=== PATIENT | male | born 1955 | race Hispanic/Latino ===

== ENCOUNTER 2020-06-23 15:20 | Inpatient (IN) | payer OTHER, MEDICARE ==
[2020-06-21 13:40] VITALS: BP 147/74
[2020-06-21 14:07] LABS: BASOPHILS % (AUTO) 0.4 % (0.0-5.0); EOSINOPHILS % (AUTO) 1.7 % (0.0-8.0); HEMATOCRIT 51.7 % (42-54); LYMPHOCYTES % (AUTO) 35.9 % (21.0-51.0); MEAN CORPUSCULAR HEMOGLOBIN 31.5 pg (27.0-33.0); MEAN CORPUSCULAR HGB CONC 33.7 g/dL (32.0-36.0); MEAN CORPUSCULAR VOLUME 93.7 fL (79-99); MONOCYTES % (AUTO) 6.6 % (3.0-13.0); NEUTROPHILS % (AUTO) 55.2 % (40.0-77.0); PLATELET COUNT (AUTO) 145 K/uL (130-400); RED BLOOD CELL COUNT(AUTO) 5.52 MIL/uL (4.50-6.20); WHITE BLOOD COUNT (AUTO) 9.5 K/uL (4.8-10.8)
[2020-06-21 14:18] LABS: ALBUMIN 4.3 g/dL (3.5-5.0); BILIRUBIN,TOTAL 0.5 mg/dL (0.2-1.0); CREATININE 0.8 mg/dL (0.5-1.5); POTASSIUM 4.1 mmol/L (3.5-5.1)
[2020-06-21 14:24] LABS: HEMOGLOBIN A1C 5.5 % (4.0-6.0)
[2020-06-21 14:44] LABS: INR 1.12 (0.85-1.15); PARTIAL THROMBOPLASTIN TIME 22.3 SEC (26.3-35.5); PROTHROMBIN TIME 11.5 SEC (9.6-11.6)
[~2020-06-23] VITALS: Ht 162.6 cm; Wt 89.9 kg
[~2020-06-23 15:20] MED LIST: AEC81 PO
[2020-06-23] MEDS ORDERED: METO-391 PO (15:24)
[2020-06-23] MEDS ORDERED: GABA300C PO (15:24)
[2020-06-23] MEDS ORDERED: LISI2.5T13 PO (15:24)
[2020-06-23] MEDS ORDERED: ATOR40TA69 PO (15:24)
[2020-06-23] MEDS ORDERED: CLOP75TA32 PO (15:24)
[2020-06-23] MEDS ORDERED: MULT-1258 PO (15:24)
[2020-06-24] VITALS (13 sets, daily range): BP systolic 84–148; BP diastolic 47–79
[2020-06-24] MEDS ORDERED: CEFAZOLIN SODIUM 1 GM VIAL IVP ONE (08:00)
[2020-06-24] MEDS ORDERED: CEFAZOLIN SODIUM 1 GM VIAL ONE ×3 (11:04→18:09)
[2020-06-24] MEDS ORDERED: 0.9%NACL 1000ML 1,000 ML IV ONE (11:07)
[2020-06-24] MEDS ORDERED: LIDOCAINE HCL MPF 1% 5ML VIAL ONE (12:24)
[2020-06-24] MEDS ORDERED: MIDAZOLAM HCL 1 MG/ML 2ML VIAL ONE ×2 (12:25→17:21)
[2020-06-24] MEDS ORDERED: PROPOFOL 10 MG/ML 20ML VIAL IV ONE (17:20)
[2020-06-24] MEDS ORDERED: DEXAMETHASONE SOD PHOSPHATE 10MG/ML 1ML VIAL ONE (17:20)
[2020-06-24] MEDS ORDERED: SUCCINYLCHOLINE CHLORIDE 20 MG/ML 10 ML VIAL ONE (17:20)
[2020-06-24] MEDS ORDERED: LIDOCAINE PF 100MG/5ML (2%) SYRINGE 5ML ONE (17:20)
[2020-06-24] MEDS ORDERED: FENTANYL CITRATE PF 50 MCG/1 ML 2ML VIAL ONE (17:20)
[2020-06-24] MEDS ORDERED: ONDANSETRON 4MG INJ ONE (17:20)
[2020-06-24] MEDS ORDERED: GLYCOPYRROLATE 1 MG/5 ML SYRINGE ONE (17:20)
[2020-06-24] MEDS ORDERED: NEOSTIGMINE 5MG/5ML SYR IV ONE (17:21)
[2020-06-24] MEDS ORDERED: ROCURONIUM 10MG/1ML SYR 10 MG/ML ML ONE (17:21)
[2020-06-24] MEDS ORDERED: EPHEDRINE SULFATE 50 MG/ML AMPULE ONE (17:46)
[2020-06-24] MEDS ORDERED: ACETAMINOPHEN 325 MG TAB PO PRN ×2 (19:15)
[2020-06-24] MEDS ORDERED: TRAMADOL HCL 50 MG TABLET PO PRN (19:15)
[2020-06-24] MEDS ORDERED: ONDANSETRON 4MG INJ IVP PRN (19:15)
[2020-06-24] MEDS: GABAPENTIN 300 MG CAPSULE PO SCH (20:41)
[2020-06-24] MEDS: TRAMADOL HCL 50 MG TABLET PO PRN (21:43)
[2020-06-25] VITALS (7 sets, daily range): BP systolic 106–129; BP diastolic 49–68
[2020-06-25] MEDS: CEFAZOLIN SODIUM 1 GM VIAL IVP SCH ×3 (02:09→17:19)
[2020-06-25 04:55] LABS: HEMATOCRIT 43.5 % (42-54); MEAN CORPUSCULAR HEMOGLOBIN 31.7 pg (27.0-33.0); MEAN CORPUSCULAR VOLUME 93.1 fL (79-99); RED BLOOD CELL COUNT(AUTO) 4.67 MIL/uL (4.50-6.20); RED CELL DISTRIBUTION WIDTH 13.9 % (11.0-15.5); WHITE BLOOD COUNT (AUTO) 13.4 K/uL (4.8-10.8)
[2020-06-25 05:05] LABS: CREATININE 0.7 mg/dL (0.5-1.5); POTASSIUM 3.6 mmol/L (3.5-5.1)
[2020-06-25] MEDS: LISINOPRIL 2.5 MG TABLET PO SCH (08:57)
[2020-06-25] MEDS: MULTIVITAMIN WITH MINERALS TABLET PO SCH (08:57)
[2020-06-25] MEDS: CLOPIDOGREL 75MG TAB PO SCH (08:57)
[2020-06-25] MEDS: METOPROLOL SUCCINATE 50 MG TAB.SR.24H PO SCH (08:58)
[2020-06-25] MEDS: ATORVASTATIN 40 MG TABLET PO SCH (08:58)
[2020-06-25] MEDS: GABAPENTIN 300 MG CAPSULE PO SCH ×3 (08:58→21:21)
[2020-06-25] MEDS: ASPIRIN 81 MG EC TAB PO SCH (08:58)
[2020-06-25] MEDS: TRAMADOL HCL 50 MG TABLET PO PRN (13:43)
[2020-06-25] MEDS: KETOROLAC 30MG VIAL (30MG/ML) IV SCH (21:21)
[2020-06-26] MEDS: KETOROLAC 30MG VIAL (30MG/ML) IV SCH ×3 (02:44→20:00)
[2020-06-26 02:50] VITALS: BP 133/80
[2020-06-26 08:00] VITALS: BP 127/67
[2020-06-26] MEDS: LISINOPRIL 2.5 MG TABLET PO SCH (09:41)
[2020-06-26] MEDS: MULTIVITAMIN WITH MINERALS TABLET PO SCH (09:41)
[2020-06-26] MEDS: METOPROLOL SUCCINATE 50 MG TAB.SR.24H PO SCH (09:41)
[2020-06-26] MEDS: ASPIRIN 81 MG EC TAB PO SCH (09:41)
[2020-06-26] MEDS: ATORVASTATIN 40 MG TABLET PO SCH (09:42)
[2020-06-26] MEDS: GABAPENTIN 300 MG CAPSULE PO SCH ×3 (09:42→20:43)
[2020-06-26] MEDS: CLOPIDOGREL 75MG TAB PO SCH (09:44)
[2020-06-26 12:00] VITALS: BP 106/61
[2020-06-26 16:00] VITALS: BP 137/68
[2020-06-26 19:00] VITALS: BP 123/56
[2020-06-26 23:00] VITALS: BP 112/65
[2020-06-27] MEDS: KETOROLAC 30MG VIAL (30MG/ML) IV SCH (01:13)
[2020-06-27 03:00] VITALS: BP 118/68
[2020-06-27] MEDS: ASPIRIN 81 MG EC TAB PO SCH (08:04)
[2020-06-27] MEDS: METOPROLOL SUCCINATE 50 MG TAB.SR.24H PO SCH (08:04)
[2020-06-27] MEDS: LISINOPRIL 2.5 MG TABLET PO SCH (08:04)
[2020-06-27] MEDS: MULTIVITAMIN WITH MINERALS TABLET PO SCH (08:05)
[2020-06-27] MEDS: ATORVASTATIN 40 MG TABLET PO SCH (08:05)
[2020-06-27] MEDS: CLOPIDOGREL 75MG TAB PO SCH (08:05)
[2020-06-27] MEDS: GABAPENTIN 300 MG CAPSULE PO SCH ×2 (08:09→13:16)
[2020-06-27] MEDS: TRAMADOL HCL 50 MG TABLET PO PRN (08:12)
[2020-06-27] MEDS ORDERED: LACTULOSE 20 GM/30 ML UDCUP PO PRN (08:15)
[2020-06-27 08:27] VITALS: BP 122/67
[2020-06-27 12:07] VITALS: BP 114/66
== END 2020-06-27 15:04 | disposition home or self-care (01) | DRG 254 ==
LOC: DAHIP 06-24 10:12 → 4CH 06-24 21:55
PROVIDERS: ADMIT Thoracic Surgery (Cardiothoracic Vascular Surgery); ATTEND Thoracic Surgery (Cardiothoracic Vascular Surgery)
PROC: 041L0KL Bypass Left Femoral Artery to Popliteal Artery with Nonautologous Tissue Substitute, Open Approach (ICD-10-PCS; principal; 2020-06-24 17:49)
DX: I73.9 Peripheral vascular disease, unspecified (principal); E78.00 Pure hypercholesterolemia, unspecified; E87.70 Fluid overload, unspecified; Z20.822 Contact with and (suspected) exposure to COVID-19; I10 Essential (primary) hypertension; Z79.899 Other long term (current) drug therapy
CPT/HCPCS: 36415; 71046; 80048; 80053; 82948; 83036; 85025; 85027; 85610; 85730; 86850; 86900; 86901; 93005; 97039; A4344; G0378; J0330; J0690; J1100; J1644; J1885; J2001; J2250; J2405; J2704; J2710; J3010; J3490; J7030; U0003

== ENCOUNTER → 2021-03-29 | Outpatient (CLI) | payer OTHER, MEDICARE ==
[~2021-03-29] MED LIST changes: +ATOR40TA69 PO; +CLOP75TA32 PO; +GABA300C PO; +LISI2.5T13 PO; +METO-391 PO; +MULT-1258 PO
== END | disposition home or self-care (01) ==
LOC: DAH 10:00 → EDSTATUS 04-05 20:36
PROVIDERS: ATTEND Internal Medicine Gastroenterology
DX: Z01.812 Encounter for preprocedural laboratory examination (principal); Z12.11 Encounter for screening for malignant neoplasm of colon; Z20.822 Contact with and (suspected) exposure to COVID-19
CPT/HCPCS: 87426